=== PATIENT | male | born 2005 | race Two or more races ===

== ENCOUNTER 2025-05-07 14:31 | Emergency (ER) | payer MEDICAID, SELFPAY ==
--- NOTE | 2025-05-07 14:53 | EKG_ITS ---
[facility] Test Date: 2025-05-07 Pat Name: MOHIT MENDOZA Department: Room: - Gender: Male Director Of Reimbursement: : 2005 Requested By: ED Temporary Provider Order Number: [id number] Reading MD: ED Temporary Provider Measurements Intervals [place]ulbert Rate: 123 P: 62 CT: 96 QRS: 80 QRSD: 88 T: 79 QT: 352 QTc: 505 Interpretive Statements SINUS TACHYCARDIA WITH SHORT CT INTERVAL NONSPECIFIC T-WAVE ABNORMALITY ABNORMAL RHYTHM ECG No previous ECG available for comparison /store/S0/[id number]/ecg/[id number].pdf
[2025-05-07 14:55] VITALS: PULSE 125; RESP 28; O2SAT 98; BMI 18.5
[2025-05-07 15:00] VITALS: BP 123/74; PULSE 117; RESP 20; TEMP 36.6; O2SAT 96; BMI 18.5
--- NOTE | 2025-05-07 15:14 | EDNOTE_ITS ---
ED Anxiety RME/HPI General Chief Complaint: Anxiety Stated Complaint: ANXIETY Time Seen by Provider: 05/07/25 15:07 Arrival date/time: 05/07/25 14:31 RME / HPI RME / HPI narrative: 19 year old male presents to the ED brought in by ambulance from home for evaluation of anxiety today. Reportedly has felt anxious intermittently over the last several weeks. However, symptoms just got too bad today. Accompanied by neck and chest pain also beginning intermittently several weeks ago. Patent states he has consulted with his PCP who had prescribed Venlafaxine. States he took the medication and feels it gave him more panic attacks which he discontinued. Not currently on any medications. Denies use of drugs or alcohol. Related Data Previous Rx's ?Medication ?Instructions ?Recorded alprazolam 0.5 mg tablet (Xanax) 0.5 mg PO BID PRN anx iety #10 tabs 05/07/25 Allergies Allergy/AdvReac Type Severity Reaction Status Date / Time No Known Allergies Allergy Unverified 05/07/25 15:06 Review of Systems Review of Systems Systems Reviewed: All systems reviewed, normal except as documented Past Medical History Social History SMOKING STATUS: Never smoker ED Exam Narrative Physical exam: GENERAL APPEARANCE:? alert and oriented x 4, well-developed, well-nourished, appears anxious, mildly tachypneic HEENT: normocephalic, atraumatic NECK: supple LUNGS: no respiratory distress, normal effort HEART: good peripheral perfusion ABDOMEN: non distended EXTREMITIES:? atraumatic NEUROLOGIC: awake; alert and oriented x4; cranial nerves II-XII grossly intact PSYCHIATRIC:? appears anxious SKIN: warm, dry, normal color; no rashes Course Course Course Narrative: 1800; Patient signed out to Dr. Ricketts pending labs and final disposition. Quality Measures none Orders Category Date Time Status EKG (ED ONLY) *Do not use* NOW Care 05/07/25 14:53 Completed EKG (ED Only) Stat Exams 05/07/25 14:53 Draft CBC Stat Lab 05/07/25 15:05 Ordered Comprehensive Metabolic Panel Stat Lab 05/07/25 15:05 Ordered Lipase Stat Lab 05/07/25 15:05 Ordered Magnesium Stat Lab 05/07/25 15:05 Ordered Troponin I Stat Lab 05/07/25 15:05 Ordered LORazepam [Ativan] Med 05/07/25 15:04 Discontinued 1 mg PO X1 ONE Vital Signs Vital signs: Vital Signs Temperature 97.9 F 05/07/25 15:00 Pulse Rate 117 H 05/07/25 15:00 Respiratory Rate 20 05/07/25 15:00 Blood Pressure 123/74 05/07/25 15:00 Pulse Oximetry (%) 96 05/07/25 15:00 Oxygen Delivery Method Room Air 05/07/25 15:00 Anxiety MDM Narrative MDM Narrative: Savita Dixon am scribing for and in the presence of Dr. Cohen. Patient data External records reviewed:: EMS form Clinical information provided by:: patient and EMS Social determinants that could affect healthcare access:: mental health Patient has the following chronic illnesses:: Anxiety How is presenting disease/condition affected by chronic disease/condition?: exacerbated by Evaluation data The following diagnostics were reviewed and interpreted by me:: EKG tracing(s) Lab and/or radiology exams considered but not ordered:: None Interpretation Summary: 05/07/2025 @ 14:55 hours. Sinus tachycardia, rate 123, no acute ischemic changes. Medications / Prescriptions Medications or Prescriptions considered but not ordered:: None Medication administrations:: Medication Administration History Discontinued Medications Lorazepam (Lorazepam 0.5 Mg Tablet) 1 mg PO X1 ONE Stop: 05/07/25 15:05 Last Admin: 05/07/25 15:10 Dose: 1 mg Documented By: VG Consultations Consultation(s) initiated? (list below): No Diagnosis Differential diagnosis anxiety: hyperventilation, panic disorder and acute anxiety Most likely diagnosis given after review of the tests above:: Anxiety Admission Indicated Admission indicated?: not indicated Explain why admission is indicated or not indicated:: Signed out pending final disposition Admission Request Was there a request for admission?: No Disposition Plan Disposition Plan: other (specify) (signed out to Dr. Ricketts pending final disposition. ) Discharge Plan Plan Patient Disposition: HOME (Self Care) Prescriptions/Referrals Prescriptions/Med Rec: New alprazolam [Xanax] 0.5 mg tablet 0.5 mg PO BID PRN (Reason: anxiety) Qty: 10 0RF Referrals: Michoacano Gaona PA-C [Primary Care Provider] - In 1 week Problem List Clinical Impression: Palpitations Patient/Caregiver Discharge Instructions Print Language: Luxembourgish
[2025-05-07 16:33] LABS: Basophils # (Auto) 0.0 Thou/mm3 (0.0-0.2); Basophils % (Auto) 1 % (0-2.5); Eosinophils # (Auto) 0.0 Thou/mm3 (0.0-0.5); Eosinophils % (Auto) 0 % (0-10); Hematocrit 44.3 % (41.0-53.0); Hemoglobin 15.2 g/dL (13.5-16.0); Immature Granulocytes Auto 0.02 Thou/mm3 (0.00-0.00); Lymphocytes # (Auto) 1.3 Thou/mm3 (1.0-4.8); Lymphocytes % (Auto) 21 % (10-50); Mean Corpuscular HGB Conc 34.3 g/dl (31.0-37.0); Mean Corpuscular Hemoglobin 29.4 pg (25.0-35.0); Mean Corpuscular Volume 86 fL (80-100); Monocytes # (Auto) 0.3 Thou/mm3 (0.0-0.8); Monocytes % (Auto) 6 % (0-12); Neutrophils # (Auto) 4.2 Thou/mm3 (1.8-7.7); Neutrophils % (Auto) 72 % (37-80); Nucleated Red Blood Cell # 0.00 Thou/mm3 (0.00-0.00); Nucleated Red Blood Cell % 0 /100 WBC (0); Platelet Count 184 Thou/mm3 (140-440); RDW Standard Deviation 39.4 fL (35.1-43.9); Red Blood Count 5.17 Miln/mm3 (4.50-5.90); White Blood Count 5.8 Thou/mm3 (4.5-11.0)
[2025-05-07 17:49] LABS: Alanine Aminotransferase 13 U/L (10-49); Albumin, Serum 5.0 gm/dL (3.5-5.0); Albumin/Globulin Ratio 2.4 (1.2-2.2); Alkaline Phosphatase 45 U/L (46-116); Anion Gap 13 (7-16); Aspartate Amino Transferase 16 U/L (0-34); BUN/Creatinine Ratio 8 Ratio (12-20); Bilirubin,Total 1.1 mg/dL (0.3-1.2); Blood Urea Nitrogen 6 mg/dL (9-23); Calcium 10.5 mg/dL (8.3-10.6); Calcium (Corrected) 10.5 mg/dL (8.5-10.1); Carbon Dioxide 21.8 mMol/L (20.0-31.0); Chloride 106 mMol/L (98-107); Creatinine (Component) 0.8 mg/dL (0.6-1.3); Estimated Creatinine Clearance 115.3 mL/min (>60); Globulin 2.1 gm/dL (2.3-3.5); Glucose 95 mg/dL (74-106); Lipase 30 U/L (12-53); Magnesium 1.7 mg/dL (1.6-2.6); Osmolality,Calculated 278 (275-295); Potassium 2.9 mMol/L (3.4-5.1); Sodium 141 mMol/L (136-145); Total Protein 7.1 gm/dL (5.7-8.2); Troponin I < 0.002 ng/mL (0.0-0.045); eGFR > 60 See Note
--- NOTE | 2025-05-07 18:10 | PD.EDADDENDU ---
Emergency Room Addendum <Jennifer Lackey - Last Filed: 05/07/25 18:28> Addendum Narrative: I took over the care from previous shift physician, Dr. Cohen, at 6 PM on 05/07/25. See previous notes for complete H & P and ED course. I reviewed all diagnostic test results. Blood tests are unremarkable except for K 2.9. Diagnoses include palpitations. Treatment here from me included Potassium. Based on my best medical judgment, made decision no further evaluation or treatment indicated at this time. Patient understands and agrees to the discharge instructions customized and printed, see below. Discharge instructions from Dr. Ricketts: 1. After extensive evaluation, there is no life-threatening condition.? Such as heart attack. 2. Your symptoms may be due to underlying stress or anxiety or nerves.? This is fairly common. 3. Take Xanax as needed.? Whether this helps or not will be valuable information to your private doctors. 4. See a private doctor on 05/08/2025 for recheck. Ask to review all test results and official radiology reports, to make sure you receive all necessary follow-ups and monitoring, including repeat potassium level. To make sure there is no serious underlying heart condition, ask to help you get more tests for your heart that cannot be done here in the ER.? Such as Holter Monitor (cardiac monitoring at home from a day to even a month), heart stress test (on treadmill or with medication), echocardiogram (imaging of your heart structures), heart catherization (checking for blockages in your heart arteries), and a referral to see a Hospitalist Medical Director. 5. Seek immediate medical care with worsening or with any concerns.?? Andrzej Ricketts MD <Andrzej Ricketts MD - Last Filed: 05/07/25 18:32> Addendum Narrative: I took over the care from previous shift physician, Dr. Cohen, at 6 PM on 05/07/25. See previous notes for complete H & P and ED course. I reviewed all diagnostic test results. My interpretation of the EKG is: Sinus rhythm (123 bpm) with nonspecific ST-T changes. Andrzej Ricketts MD Blood tests are unremarkable except for K 2.9. Diagnoses include palpitations and chest pain due to anxiety. Treatment here included Xanax and oral KCl. Significant improvement noted. Recommend a more outpatient cardiac workup. Based on my best medical judgment, made decision no further evaluation or treatment indicated at this time. Patient understands and agrees to the discharge instructions customized and printed, see below. Discharge instructions from Dr. Ricketts: 1. After extensive evaluation, there is no life-threatening condition.? Such as heart attack. 2. Your symptoms may be due to underlying stress or anxiety or nerves.? This is fairly common. 3. Take Xanax as needed.? Whether this helps or not will be valuable information to your private doctors. 4. See a private doctor on 05/08/2025 for recheck. Ask to review all test results and official radiology reports, to make sure you receive all necessary follow-ups and monitoring, including repeat potassium level. To make sure there is no serious underlying heart condition, ask to help you get more tests for your heart that cannot be done here in the ER.? Such as Holter Monitor (cardiac monitoring at home from a day to even a month), heart stress test (on treadmill or with medication), echocardiogram (imaging of your heart structures), heart catherization (checking for blockages in your heart arteries), and a referral to see a Hospitalist Medical Director. 5. Seek immediate medical care with worsening or with any concerns.?? Andrzej Ricketts MD
[2025-05-07] MEDS: POTASSIUM CHLORIDE 10% 20 MEQ/15 ML UDC 40 MEQ PO (19:25)
== END 2025-05-07 19:35 | disposition home or self-care (01) ==
PROVIDERS: Emergency Medicine; Emergency Provider Emergency Medicine; PCP Physician Assistant Medical
DX: R00.2 Palpitations (principal); F41.9 Anxiety disorder, unspecified
CPT/HCPCS: 36415; 80053; 83690; 83735; 84484; 85025; 93005; 99283; A9270

== ENCOUNTER 2025-05-17 13:52 | Outpatient (RCR) | payer MEDICAID, SELFPAY ==
--- NOTE | 2025-05-17 14:12 | PT.OIERPT ---
PT OP Initial Eval Patient Information Outpatient Physical Therapy Treatment Date: 05/17/25 Visit Reasons: left shoulder pain Medical Diagnosis: M25.512 M75.40 Treatment Dx #1: L shoulder pain Start of Care: 05/17/25 Date of Onset: 3 months ago Smoking Status Smoking Status: Never smoker Initial Assessment Subjective: Pt is 19 yr old male with c/o L shoulder pain x3 months insidious onset, sharp pain. Increased pain with laying on L side while sleeping and reaching up. 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 PMH: none reported Imaging: with provider Pt goal: to get rid of the pain Objective: L shoulder AROM: FF: 140 deg ABd: 90 deg with pain ER: 80 deg Goel Adam: negative cross body impingement: positive TTP: moderate of long head biceps tendon Assessment: Pt presentation consistent with bicipital tendinopathy. Pt has TTP of biceps tendon. Pt may benefit from skilled therapy and has fair rehab potential. Short Term and Doctor Of Podiatry Goals 1. Ind with HEP 2. Decreased TTP of biceps tendon from mod to min 3. Pt will tolerate work duties x6 hrs with <=3/10 L shoulder pain Treatment Plan 1. Manual therapy ? 2. Therex ? 3. Modalities as indicated, moist heat, ice, estim Frequency and Duration: 1-2x a week for 12 visits Certification Dates: 05/17/25 to 08/15/25 Procedure Charges OP PT Eval Mod Complex 30 minutes: Yes
== END 2025-05-20 23:59 | disposition home or self-care (01) ==
LOC: CPTX 13:52
PROVIDERS: PCP Internal Medicine; Referring Provider Internal Medicine; Visit Provider Internal Medicine
DX: M25.512 Pain in left shoulder (principal); M75.42 Impingement syndrome of left shoulder
CPT/HCPCS: 97162

== ENCOUNTER 2025-06-05 16:00 | Outpatient (RCR) | payer MEDICAID, SELFPAY ==
--- NOTE | 2025-05-24 16:06 | PT.ODAYNRPT ---
PT Outpatient Daily Note OP Daily Note Outpatient Physical Therapy Treatment Date: 05/24/25 Visit Reasons: LEFT SHOULDER PAIN Subjective: Pt reports L shoulder pain and mentioned he avoids picking up weighted objects with L UE to avoid aggravating symptoms. Objective: Please see flow sheet for ther ex list. Assessment: Pt demonstrates poor tolerance with interventions due to pain response. Plan: Continue with pOC. Length of Time (minutes) of Treatment: 30 Minutes Procedure Charges Therapeutic Exercise 30 minutes: Yes
--- NOTE | 2025-05-29 17:23 | PT.ODAYNRPT ---
PT Outpatient Daily Note OP Daily Note Outpatient Physical Therapy Treatment Date: 05/29/25 Visit Reasons: LEFT SHOULDER PAIN Subjective: Continued L shoulder pain Objective: See F/S for therex Assessment: Low tissue irritability of L shoulder with resisted TB therex Plan: Continue per POC Length of Time (minutes) of Treatment: 30 Minutes Procedure Charges Therapeutic Exercise 30 minutes: Yes
--- NOTE | 2025-06-05 18:14 | PT.ODAYNRPT ---
PT Outpatient Daily Note OP Daily Note Outpatient Physical Therapy Treatment Date: 06/05/25 Visit Reasons: LEFT SHOULDER PAIN Subjective: Continued L shoulder pain Objective: See F/S for therex MT: STM biceps tendon x7' Assessment: Low tissue irritability of L shoulder with resisted TB therex Plan: Continue per POC Length of Time (minutes) of Treatment: 30 Minutes Procedure Charges Therapeutic Exercise 30 minutes: Yes
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
== END 2025-06-19 23:59 | disposition home or self-care (01) ==
LOC: CPTX 16:00
PROVIDERS: PCP Internal Medicine; Referring Provider Internal Medicine; Visit Provider Internal Medicine
DX: M25.512 Pain in left shoulder (principal); M75.42 Impingement syndrome of left shoulder
CPT/HCPCS: 97110

== ENCOUNTER → 2025-07-27 | Outpatient (CLI) | payer MEDICAID, SELFPAY ==
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
== END | disposition home or self-care (01) ==
PROVIDERS: Referring Provider Orthopaedic Surgery; Visit Provider Orthopaedic Surgery
DX: S82.202D Unspecified fracture of shaft of left tibia, subsequent encounter for closed fracture with routine healing (principal); S82.143D Displaced bicondylar fracture of unspecified tibia, subsequent encounter for closed fracture with routine healing; X58.XXXD Exposure to other specified factors, subsequent encounter
CPT/HCPCS: 73564

== ENCOUNTER → 2025-09-07 | Outpatient (CLI) | payer MEDICAID, SELFPAY ==
--- NOTE | 2025-09-07 11:35 | XR_ITS ---
Examination: Knee bilateral, 4 views Technique: Knee AP, lateral, each knee total 4 views Date and time of exam: September 07, 2025, 1252 hours INDICATIONS: Status post operative reduction fractures proximal tibia postop reduction internal fixation FINDINGS: No right knee fracture or dislocation Operative reduction internal fixation healed fracture proximal tibia with satisfactory alignment Orthopedic hardware satisfactory position IMPRESSION: Operative reduction internal fixation healed fracture proximal tibia with satisfactory alignment
== END | disposition home or self-care (01) ==
PROVIDERS: PCP Physician Assistant Medical; Referring Provider Orthopaedic Surgery; Visit Provider Orthopaedic Surgery
DX: M25.562 Pain in left knee (principal); M25.561 Pain in right knee
CPT/HCPCS: 73560